=== PATIENT | female | born 1990 ===

== ENCOUNTER → 2016-07-26 | Outpatient (REF) | payer OTHER, MEDICAID | LOC: M LAB REF 18:24 | PROVIDERS: ATTEND Nurse Practitioner Family | DX: Z12.4 Encounter for screening for malignant neoplasm of cervix (principal); R87.618 Other abnormal cytological findings on specimens from cervix uteri ==

== ENCOUNTER → 2018-06-25 | Outpatient (REF) | payer OTHER, MEDICAID ==
[2018-06-26 15:26] LABS: CHLAMYDIA DNA AMPLIFICATION POSITIVE (NEGATIVE); GC DNA AMPLIFICATION NEGATIVE (NEGATIVE)
== END ==
LOC: M LAB REF 12:14
DX: Z11.3 Encounter for screening for infections with a predominantly sexual mode of transmission (principal)